=== PATIENT | male | born 1955 | race Caucasian/White ===

== ENCOUNTER 2021-04-05 12:39 | Emergency (ER) | payer MEDICARE ==
[~2021-04-05] VITALS: Ht 170.2 cm; Wt 70.5 kg
[2021-04-05] MEDS ORDERED: normal saline 1000ML IV soln IVB ONE (13:50)
[2021-04-05 14:40] LABS: BASOPHILS % (AUTO) 0.4 % (0-1); MEAN PLATELET VOLUME 8.5 FL (7.4-10.4); MONOCYTES # (AUTO) 0.4 X10'3 (0-0.9)
[2021-04-05 14:41] LABS: EOSINOPHILS % (AUTO) 0.1 % (0-6); HEMATOCRIT 46.3 % (42.0-52.0); HEMOGLOBIN 15.7 g/dl (14.0-17.9); LYMPHOCYTES # (AUTO) 0.9 X10'3 (1.1-4.8); LYMPHOCYTES % (AUTO) 17.7 % (21-51); MEAN CORPUSCULAR HGB CONC 33.9 g/dL (33.0-36.5); MEAN CORPUSCULAR VOLUME 91.4 FL (78-98); MONOCYTES % (AUTO) 7.4 % (2-12); NEUTROPHILS # (AUTO) 3.9 X10'3 (1.8-7.7); NEUTROPHILS % (AUTO) 74.4 % (42-75); PLATELET COUNT 248 X10'3 (140-440); RED BLOOD COUNT 5.07 X10'6 (4.70-6.10); RED CELL DISTRIBUTION WIDTH 13.2 % (11.5-14.5); WHITE BLOOD COUNT 5.3 X10'3 (4.5-11.0)
[2021-04-05 14:56] LABS: ALANINE AMINOTRANSFERASE 62 U/L (12-78); ALBUMIN 2.8 G/DL (3.4-5.0); ALBUMIN/GLOBULIN RATIO 0.5 (1.1-1.5); ALKALINE PHOSPHATASE 66 IU/L (46-116); ANION GAP 11 (8-16); ASPARTATE AMINO TRANSFERASE 50 U/L (10-37); BILIRUBIN,TOTAL 0.6 MG/DL (0.1-1.0); BLOOD UREA NITROGEN 20 MG/DL (7-18); CALCIUM 8.1 MG/DL (8.5-10.1); CHLORIDE 98 MMOL/L (99-107); CREATININE 1.05 MG/DL (0.60-1.10); GLUCOSE 106 MG/DL (70-104); POTASSIUM 4.4 MMOL/L (3.5-5.1); SODIUM 136 MMOL/L (135-145); TOTAL CARBON DIOXIDE 27.2 MMOL/L (24-32); TOTAL PROTEIN 7.9 G/DL (6.4-8.2); eGFR 71 ML/MIN
[2021-04-05] MEDS ORDERED: dexamethasone sod phosphate 10mg/ml inj IV STA (15:37)
[2021-04-05] MEDS ORDERED: ALBU6.7H9 INH (15:59)
[2021-04-05 16:17] VITALS: BP 104/54
== END 2021-04-05 16:18 | disposition home or self-care (01) ==
LOC: EDBD 12:39 → ER 12:39
DX: U07.1 COVID-19 (principal); R06.02 Shortness of breath; R53.1 Weakness
CPT/HCPCS: 36415; 71045; 80053; 84145; 85025; 87635; 93005; 96360; 99285; C9803; J7030